=== PATIENT | female | born 1995 | race Caucasian/White ===

== ENCOUNTER 2019-01-16 06:09 | Day surgery (SDC) | payer OTHER ==
[~2019-01-16] VITALS: Ht 157.5 cm; Wt 47.6 kg
--- NOTE | ~2019-01-16 | O ---
[facility] [place] [address] OPERATIVE REPORT Name: MARINO STEELE Room #: 150-1 [facility] M.R.#: [id number] Admission: 01/16/19 Attend Phys: Viviane Ruggiero, Discharge: Date of : 89 Report #: [id number] THIS REPORT FOR: //name// CC: DOT physician/PCP Viviane Ruggiero DATE OF SERVICE: 01/16/2019 PREOPERATIVE DIAGNOSIS: Left ring finger middle phalanx fracture, oblique displaced with rotational deformity. POSTOPERATIVE DIAGNOSES: Left ring finger middle phalanx fracture, oblique displaced with rotational deformity. PROCEDURE PERFORMED: Open reduction and internal fixation of left ring finger, middle phalanx fracture. SURGEON: Viviane Ruggiero MD. ANESTHESIA: General mask anesthesia. ESTIMATED BLOOD LOSS: Minimal. TOURNIQUET TIME: 53 minutes. COMPLICATIONS: None. CONDITION: Stable. DISPOSITION: Recovery room. INDICATIONS: The patient is a 23-year-old female with the above-mentioned diagnosis. She elects for operative treatment. The risks, benefits, alternatives and complications were discussed that included but were not limited to infection, damage to vessels or nerves and nonunion in mind, hardware failure, hardware rotation stiffness. Informed consent was obtained. Her mother was at her bedside. The correct extremity was identified and labeled by myself after verbal confirmation of the patient as well as visual confirmation and signed informed consent. DESCRIPTION OF PROCEDURE: The patient was brought to the operating room and placed on the operating table in supine position. She received preoperative antibiotics. Tourniquet was placed over padding on the patient's left upper extremity. Left upper extremity was sterilely prepped and draped in the usual fashion. Final timeout was taken to verify correct patient, operative procedure, operative site, all concurred. The arm was elevated, exsanguinated [address] [address] OPERATIVE REPORT Name: MARINO STEELE Room #: 150-1 [facility]..#: [id number] Admission: 01/16/19 Attend Phys: Viviane Ruggiero, Discharge: Date of : [birth year] Report #: [id number] and the tourniquet inflated. Next, a curvilinear incision was made over the middle phalanx on the left ring finger. Dissection was carried down through subcutaneous tissue with tenotomy scissors. The extensor tendon was split and then the periosteum was elevated off the fracture site. The fracture site was easily identified. However, it had started to knit together and I had to break apart the fibrous tissue with a small Churchill type elevator. Once this was done, the fracture fragments were mobilized and I was able to reduce the fracture nicely. Next, two 0.045 inch wires were placed in anticipation of placing 1.5 mm lag screws. The distal most screw was placed in compression mode and there was a fair amount of compression. This was done with a reduction clamp in place. The proximal screw was placed, but it did not have good fixation, so it was removed. Next, a more proximal screw was drilled, measured and the lag screw was placed. This was a 1.3 mm screw. These had good compression, a good fixation. There was no room for any other screws to be placed. There was no rotational angular deformity. This was checked under direct visualization multiple times fluoroscopy was used, AP, lateral and live fluoroscopic views, which showed good fixation of the fracture and appropriate alignment. The wound was thoroughly irrigated. The periosteum was unable to be reapproximated. The extensor tendon was reapproximated with 4-0 running locked Supramid suture. The skin was closed with 4-0 nylon suture. The dorsal subcutaneous tissue was infiltrated with approximately 5 mL of 0.25% Marcaine. She was placed in a bulky dressing and a volar dorsal slab splint all the way to the fingertip. All fingers were pink with brisk capillary refill at the conclusion of the case after deflation of tourniquet and application of the dressing. All sponge and needle counts were correct. The patient was transferred to postoperative recovery room in stable condition. By: [id number] Viviane Ruggiero MD /brigida
[2019-01-16 07:05] VITALS: BP 92/79
[2019-01-16 09:03] VITALS: BP 92/79
== END 2019-01-16 09:45 | disposition home or self-care (01) ==
LOC: OR 06:09 → TBA 06:12 → OR 08:58
DX: S62.625A Displaced fracture of middle phalanx of left ring finger, initial encounter for closed fracture (principal); F17.210 Nicotine dependence, cigarettes, uncomplicated; Z88.8 Allergy status to other drugs, medicaments and biological substances; Z91.013 Allergy to seafood; Z79.899 Other long term (current) drug therapy; X58.XXXA Exposure to other specified factors, initial encounter; Y93.89 Activity, other specified; Y92.89 Other specified places as the place of occurrence of the external cause; Y99.8 Other external cause status
CPT/HCPCS: 50010; 50101; 50386; 55430; 56525; 56526; 57006; 57091; 57178; 62110; 62900